=== PATIENT | female | born 1995 | race Caucasian/White ===

== ENCOUNTER 2023-07-05 13:11 | Emergency (ER) | payer OTHER ==
[2023-07-05 14:10] LABS: BASOPHILS PERCENT AUTO 0.3 % (0.0-1.0); EOSINOPHILS PERCENT AUTO 2.1 % (1.0-3.0); HEMATOCRIT 39.4 % (37.0-47.0); HEMOGLOBIN 13.7 g/dL (12.0-16.0); LYMPHOCYTES PERCENT AUTO 15.8 % (20.5-50.1); MEAN CORPUSCULAR HEMOGLOBIN 30.9 pg (27.0-34.0); MEAN CORPUSCULAR HGB CONC 34.8 g/dL (33.0-35.0); MEAN CORPUSCULAR VOLUME 88.7 fL (80-100); MONOCYTES PERCENT AUTO 9.6 % (2-8); NEUTROPHILS PERCENT AUTO 72.2 % (42.2-75.2); PLATELET COUNT,PLT 176 10^3/uL (150-450); RED BLOOD CELL COUNT 4.44 10^6/uL (4.2-5.4); WHITE BLOOD CELL COUNT,WBC 11.2 10^3/uL (5.0-10.0)
[2023-07-05 14:23] LABS: APPEARANCE,URINE SLIGHTLY CLOUDY (CLEAR); BILIRUBIN,URINE NEGATIVE (NEGATIVE); COLOR,URINE YELLOW (YELLOW); GLUCOSE,URINE NEGATIVE (NEGATIVE); KETONES,URINE NEGATIVE (NEGATIVE); LEUKOCYTE ESTERASE,URINE SMALL (NEGATIVE); NITRITE,URINE NEGATIVE (NEGATIVE); OCCULT BLOOD,URINE NEGATIVE (NEGATIVE); PROTEIN,URINE NEGATIVE (NEGATIVE)
[2023-07-05 14:29] LABS: INR 0.9 (0.9-1.2); PROTHROMBIN TIME 9.4 SEC (9.0-12.0); PTT,PARTIAL THROMBOPLSTIN TIME 25.8 SEC (22.0-34.0)
[2023-07-05 14:30] LABS: A/G RATIO 0.78; ALANINE AMINOTRANSFERASE,ALT 14 U/L (14-59); ALBUMIN 3.1 g/dL (3.4-5.0); ALKALINE PHOSPHATASE 79 U/L (46-116); AMYLASE 53 U/L (25-115); ANION GAP 13.8 mEq/L (7-13); ASPARTATE AMNIOTRANSFERASE,AST 10 U/L (15-37); BILIRUBIN TOTAL 0.4 mg/dL (0.2-1.0); BLOOD UREA NITROGEN,BUN 7 mg/dL (7-18); BUN/CREATININE RATIO 10.9 (No establ ref range); C-REACTIVE PROTEIN < 0.2 mg/dL (0.0-0.9); CARBON DIOXIDE,CO2 25 mmol/L (21-32); CHLORIDE,CL 103 mmol/L (98-107); CREATININE 0.64 mg/dL (0.55-1.02); EST CRCL DRUG DOSING (CG) 106.28 mL/min; ESTIMATED GFR 126 mL/min (>=60); GLUCOSE RANDOM 95 mg/dL (70-99); LIPASE 84 U/L (73-393); MAGNESIUM 1.9 mg/dL (1.8-2.4); POTASSIUM,K 3.8 mmol/L (3.5-5.1); PROTEIN TOTAL,TP 7.1 g/dL (6.4-8.2); SODIUM,NA 138 mmol/L (136-145)
[2023-07-05 14:32] LABS: AMORPHOUS SEDIMENT,URINE FEW /HPF (NOT SEEN); BACTERIA,URINE MODERATE /HPF (0-FEW/HPF); EPITHELIAL CELLS,URINE MODERATE /HPF (NOT SEEN); RBC,URINE NOT SEEN /HPF (0-5)
[2023-07-05 14:35] LABS: LACTIC ACID 0.7 mmol/L (0.4-2.0)
[2023-07-05] MEDS ORDERED: Ketorolac 30 MG/ML SDV IM ONE (15:37)
[2023-07-05 16:22] LABS: APPEARANCE,URINE CLEAR (CLEAR); BILIRUBIN,URINE NEGATIVE (NEGATIVE); COLOR,URINE YELLOW (YELLOW); GLUCOSE,URINE NEGATIVE (NEGATIVE); KETONES,URINE NEGATIVE (NEGATIVE); LEUKOCYTE ESTERASE,URINE NEGATIVE (NEGATIVE); NITRITE,URINE NEGATIVE (NEGATIVE); OCCULT BLOOD,URINE NEGATIVE (NEGATIVE); PROTEIN,URINE NEGATIVE (NEGATIVE)
== END 2023-07-05 16:54 | disposition home or self-care (01) ==
LOC: DL.ED 13:11
DX: O99.891 Other specified diseases and conditions complicating pregnancy (principal); N13.30 Unspecified hydronephrosis; Z3A.28 28 weeks gestation of pregnancy
CPT/HCPCS: 36415; 76705; 80053; 81001; 81003; 82150; 83605; 83690; 83735; 85025; 85610; 85730; 86140; 87086; 96372; 99284; C1758; J1885

== ENCOUNTER 2023-09-15 22:30 | Inpatient (IN) | payer OTHER ==
[2023-09-15] MEDS ORDERED: Sodium Chloride 0.9% 10 ML Syringe FLUSH PRN (23:18)
[2023-09-15] MEDS ORDERED: Tranexamic Acid 1,000 MG in Sodium Chloride 0.9% 100 ML IV PRN (23:18)
[2023-09-15] MEDS ORDERED: Ondansetron 4 MG/2 ML SDV IVPUSH PRN (23:18)
[2023-09-15] MEDS ORDERED: Methylergonovine 0.2 MG/1 ML Amp IM PRN (23:18)
[2023-09-15] MEDS ORDERED: Misoprostol 400 MCG (4 X 100 MCG TAB) RECTAL PRN (23:18)
[2023-09-15] MEDS ORDERED: Lidocaine 1% 30 ML SDV INJECT ONE (23:18)
[2023-09-15] MEDS ORDERED: Carboprost Tromethamine 250 MCG/1 ML Amp IM PRN (23:18)
[2023-09-15] MEDS ORDERED: fentaNYL 100 MCG/2 ML SDV IVPUSH PRN (23:18)
[2023-09-15] MEDS ORDERED: Acetaminophen 325 MG Tab PO PRN (23:18)
[2023-09-15 23:21] LABS: APPEARANCE,URINE CLEAR (CLEAR); BILIRUBIN,URINE NEGATIVE (NEGATIVE); COLOR,URINE YELLOW (YELLOW); GLUCOSE,URINE NEGATIVE (NEGATIVE); KETONES,URINE NEGATIVE (NEGATIVE); LEUKOCYTE ESTERASE,URINE NEGATIVE (NEGATIVE); NITRITE,URINE NEGATIVE (NEGATIVE); OCCULT BLOOD,URINE NEGATIVE (NEGATIVE); PH,URINE 6.5 (5.0-9.0); PROTEIN,URINE NEGATIVE (NEGATIVE); UROBILINOGEN,URINE 0.2 mg/dL (0.2-1.0)
[2023-09-15] MEDS ORDERED: ePHEDrine 50 MG/ML SDV IVPUSH PRN (23:21)
[2023-09-15] MEDS ORDERED: Phenylephrine HCl In 0.9% NaCl 1 MG/10 ML Syringe IVPUSH PRN (23:21)
[2023-09-15] MEDS ORDERED: Ropivacaine 200 MG in Premix Bag 1 BAG EPIDUR SCH (23:30)
[2023-09-15] MEDS ORDERED: Oxytocin/Normal Saline 30 UNIT/500 ML BAG IV SCH (23:30)
[2023-09-15 23:35] LABS: BACTERIA,URINE FEW /HPF (0-FEW/HPF); EPITHELIAL CELLS,URINE FEW /HPF (NOT SEEN); RBC,URINE 0-5 /HPF (0-5); WBC,URINE 0-5 /HPF (0-5/HPF)
[2023-09-16 00:50] LABS: HEMOGLOBIN 13.1 g/dL (12.0-16.0); MEAN CORPUSCULAR HEMOGLOBIN 30.3 pg (27.0-34.0); MEAN CORPUSCULAR HGB CONC 34.5 g/dL (33.0-35.0); MEAN CORPUSCULAR VOLUME 87.8 fL (80-100); RED BLOOD CELL COUNT 4.33 10^6/uL (4.2-5.4); WHITE BLOOD CELL COUNT,WBC 13.1 10^3/uL (5.0-10.0)
[2023-09-16] MEDS: Lactated Ringers 1,000 ML IV SCH ×2 (05:15→13:05)
[2023-09-16] MEDS ORDERED: Bupivacaine 0.25% 10 ML SDV ONE (08:34)
[2023-09-16] MEDS ORDERED: fentaNYL 100 MCG/2 ML SDV ONE (08:34)
[2023-09-16] MEDS ORDERED: Phenylephrine HCl In 0.9% NaCl 1 MG/10 ML Syringe IVPUSH PRN (08:58)
[2023-09-16] MEDS ORDERED: ePHEDrine 50 MG/ML SDV IVPUSH PRN (08:58)
[2023-09-16] MEDS ORDERED: Ropivacaine 200 MG in Premix Bag 1 BAG EPIDUR SCH (09:00)
[2023-09-16] MEDS: Lactated Ringers 1,000 ML IV ONE (09:20)
[2023-09-16] MEDS ORDERED: Tranexamic Acid 1,000 MG in Sodium Chloride 0.9% 100 ML IV PRN (16:41)
[2023-09-16] MEDS ORDERED: Oxytocin 10 Units/1 ML SDV IM PRN (16:41)
[2023-09-16] MEDS ORDERED: Carboprost Tromethamine 250 MCG/1 ML Amp IM PRN (16:41)
[2023-09-16] MEDS ORDERED: Simethicone 80 MG Tab.Chew PO PRN (16:41)
[2023-09-16] MEDS ORDERED: Misoprostol 400 MCG (4 X 100 MCG TAB) RECTAL PRN (16:41)
[2023-09-16] MEDS ORDERED: Benzocaine/Menthol 20%-0.5% Spray 78 GM Cannister TOP PRN (16:41)
[2023-09-16] MEDS ORDERED: Sodium Chloride 0.9% 10 ML Syringe FLUSH PRN (16:41)
[2023-09-16] MEDS: Ibuprofen 800 MG Tab PO PRN (17:37)
[2023-09-16] MEDS ORDERED: Witch Hazel Medicated Pads 100/Jar TOP PRN (19:33)
[2023-09-17] MEDS: Ibuprofen 800 MG Tab PO PRN ×3 (00:39→16:44)
[2023-09-17] MEDS ORDERED: fentaNYL 100 MCG/2 ML SDV ONE (01:33)
[2023-09-17] MEDS ORDERED: Bupivacaine 0.25% 10 ML SDV ONE (01:33)
[2023-09-17 06:38] LABS: HEMATOCRIT 33.8 % (37.0-47.0); HEMOGLOBIN 11.1 g/dL (12.0-16.0); MEAN CORPUSCULAR HGB CONC 32.8 g/dL (33.0-35.0); MEAN CORPUSCULAR VOLUME 91.4 fL (80-100); RED BLOOD CELL COUNT 3.7 10^6/uL (4.2-5.4); WHITE BLOOD CELL COUNT,WBC 13.1 10^3/uL (5.0-10.0)
[2023-09-17] MEDS: Ferrous Sulfate 325 MG Tab PO SCH (08:30)
[2023-09-17] MEDS: Prenatal Multivitamin with Calcium/Folic Acid/Iron Tab PO SCH (09:21)
[2023-09-17] MEDS: Docusate Sodium 100 MG Cap PO PRN ×2 (09:21→22:01)
[2023-09-17] MEDS: Acetaminophen 325 MG Tab PO PRN ×3 (10:49→22:00)
[2023-09-18] MEDS: Ibuprofen 800 MG Tab PO PRN (05:19)
[2023-09-18] MEDS: Ferrous Sulfate 325 MG Tab PO SCH (08:18)
[2023-09-18] MEDS: Acetaminophen 325 MG Tab PO PRN (08:18)
[2023-09-18] MEDS: Docusate Sodium 100 MG Cap PO PRN (08:18)
[2023-09-18] MEDS: Prenatal Multivitamin with Calcium/Folic Acid/Iron Tab PO SCH (08:18)
== END 2023-09-18 12:41 | disposition home or self-care (01) | DRG 806 ==
LOC: DL.OBCHECK 22:30 → UNDOADMOB 23:18 → DL.OB 23:18 → INTOOBSV 09-16 15:57 → OBSVTOIN 09-16 15:57
PROVIDERS: ADMIT Family Medicine; ATTEND Family Medicine
PROC: 10D07Z6 Extraction of Products of Conception, Vacuum, Via Natural or Artificial Opening (ICD-10-PCS; principal; 2023-09-16)
PROC: 10907ZC Drainage of Amniotic Fluid, Therapeutic from Products of Conception, Via Natural or Artificial Opening (ICD-10-PCS; 2023-09-16)
PROC: 0UQMXZZ Repair Vulva, External Approach (ICD-10-PCS; 2023-09-16)
DX: O99.892 Other specified diseases and conditions complicating childbirth (principal); N13.30 Unspecified hydronephrosis; Z37.0 Single live birth; F90.9 Attention-deficit hyperactivity disorder, unspecified type; O99.344 Other mental disorders complicating childbirth; O75.81 Maternal exhaustion complicating labor and delivery; O99.52 Diseases of the respiratory system complicating childbirth; J45.909 Unspecified asthma, uncomplicated; O70.0 First degree perineal laceration during delivery; Z88.0 Allergy status to penicillin; Z3A.38 38 weeks gestation of pregnancy
CPT/HCPCS: 01967; 36415; 51702; 59409; 81001; 85027; A9270-GY; J2405; J2590; J2795; J3010; J7120

== ENCOUNTER 2025-01-04 09:21 | Observation (INO) | payer SELFPAY ==
[2025-01-04] MEDS ORDERED: Iopamidol 612 MG/ML 100 ML Bottle IVPUSH ONE (09:51)
[2025-01-04 10:20] LABS: BASOPHILS PERCENT AUTO 0.1 % (0.0-1.0); EOSINOPHILS PERCENT AUTO 0.1 % (1.0-3.0); HEMATOCRIT 43.7 % (37.0-47.0); HEMOGLOBIN 15.2 g/dL (12.0-16.0); LYMPHOCYTES PERCENT AUTO 4.6 % (20.5-50.1); MEAN CORPUSCULAR HEMOGLOBIN 29.7 pg (27.0-34.0); MEAN CORPUSCULAR HGB CONC 34.8 g/dL (33.0-35.0); MEAN CORPUSCULAR VOLUME 85.5 fL (80-100); MONOCYTES PERCENT AUTO 5.8 % (2-8); NEUTROPHILS PERCENT AUTO 89.4 % (42.2-75.2); PLATELET COUNT,PLT 174 10^3/uL (150-450); RED BLOOD CELL COUNT 5.11 10^6/uL (4.2-5.4)
[2025-01-04 10:21] LABS: APPEARANCE,URINE CLEAR (CLEAR); BILIRUBIN,URINE SMALL (NEGATIVE); COLOR,URINE YELLOW (YELLOW); GLUCOSE,URINE NEGATIVE (NEGATIVE); KETONES,URINE 15 (NEGATIVE); LEUKOCYTE ESTERASE,URINE NEGATIVE (NEGATIVE); NITRITE,URINE NEGATIVE (NEGATIVE); OCCULT BLOOD,URINE NEGATIVE (NEGATIVE); PH,URINE 5.5 (5.0-9.0); PROTEIN,URINE TRACE (NEGATIVE); UROBILINOGEN,URINE 0.2 mg/dL (0.2-1.0)
[2025-01-04 10:30] LABS: RBC,URINE NOT SEEN /HPF (0-5); WBC,URINE 0-5 /HPF (0-5/HPF)
[2025-01-04 10:31] LABS: BACTERIA,URINE FEW /HPF (0-FEW/HPF); EPITHELIAL CELLS,URINE MODERATE /HPF (NOT SEEN); MUCUS,URINE FEW /LPF (NOT SEEN)
[2025-01-04] MEDS: Sodium Chloride 0.9% 1,000 ML IV ONE ×2 (10:31)
[2025-01-04 10:34] LABS: PROTHROMBIN TIME 10.4 SEC (9.0-12.0)
[2025-01-04] MEDS: Ondansetron 4 MG/2 ML SDV IVPUSH ONE (10:37)
[2025-01-04] MEDS: Famotidine 20 MG/2 ML SDV IVPUSH ONE (10:37)
[2025-01-04] MEDS: Lactated Ringers 1,000 ML IV ONE (10:38)
[2025-01-04 10:44] LABS: LACTIC ACID 1.5 mmol/L (0.4-2.0)
[2025-01-04 10:50] LABS: A/G RATIO 0.9; ALANINE AMINOTRANSFERASE,ALT 14 U/L (14-59); ALBUMIN 3.6 g/dL (3.4-5.0); ALKALINE PHOSPHATASE 68 U/L (46-116); ANION GAP 14.7 mEq/L (7-13); ASPARTATE AMNIOTRANSFERASE,AST 14 U/L (15-37); BILIRUBIN TOTAL 1.5 mg/dL (0.2-1.0); BLOOD UREA NITROGEN,BUN 14 mg/dL (7-18); BUN/CREATININE RATIO 19.4 (No establ ref range); CALCIUM 9.3 mg/dL (8.5-10.1); CARBON DIOXIDE,CO2 26 mmol/L (21-32); CHLORIDE,CL 100 mmol/L (98-107); CREATININE 0.72 mg/dL (0.55-1.02); GLUCOSE RANDOM 113 mg/dL (70-99); LIPASE 20 U/L (16-77); MAGNESIUM 1.7 mg/dL (1.8-2.4); POTASSIUM,K 3.7 mmol/L (3.5-5.1); PROTEIN TOTAL,TP 7.4 g/dL (6.4-8.2); SODIUM,NA 137 mmol/L (136-145)
[2025-01-04 10:54] LABS: ESTIMATED GFR 117 mL/min (>=60); ETHANOL BLOOD MEDICAL < 3 mg/dL (0)
[2025-01-04] MEDS: Pantoprazole 40 MG Vial IVPUSH ONE (11:59)
[2025-01-04] MEDS: Lactated Ringers 1,000 ML IV SCH (12:09)
[2025-01-04] MEDS ORDERED: Acetaminophen 325 MG Tab PO PRN (15:39)
[2025-01-04] MEDS ORDERED: Metoclopramide 10 MG/2 ML SDV IVPUSH PRN (15:40)
[2025-01-04] MEDS: Acetaminophen 325 MG Tab PO ONE (16:12)
[2025-01-04] MEDS: Ondansetron 4 MG/2 ML SDV IVPUSH PRN (16:12)
[2025-01-04] MEDS: Dextrose 5%-0.9% NaCl with KCl 1,000 ML IV SCH (16:35)
[2025-01-05] MEDS: Take Home: Ondansetron 4 MG Tab.DIS, 5 Tab Pack PO ONE (10:08)
== END 2025-01-05 10:10 | disposition still patient (30) ==
LOC: DL.ED 09:21 → UNDOADMOB 14:51 → DL.MS 14:51
PROVIDERS: ADMIT Family Medicine; ATTEND Family Medicine
DX: O99.612 Diseases of the digestive system complicating pregnancy, second trimester (principal); A08.4 Viral intestinal infection, unspecified; O21.9 Vomiting of pregnancy, unspecified; O99.282 Endocrine, nutritional and metabolic diseases complicating pregnancy, second trimester; E86.0 Dehydration; E83.42 Hypomagnesemia; Z88.1 Allergy status to other antibiotic agents; Z3A.17 17 weeks gestation of pregnancy; Z20.822 Contact with and (suspected) exposure to COVID-19; Z79.899 Other long term (current) drug therapy
CPT/HCPCS: 36415; 80053; 80307; 81001; 81025; 82947; 83605; 83690; 83735; 84484; 84702; 85025; 85610; 86850; 86900; 86901; 87428-QW; 93005; 93010; 96361; 96365; 96375; 99284; 99285-25; A9270-GY; G0378; J2405; J3475; J3480; J7120; Q0162

== ENCOUNTER 2025-06-04 18:04 | Inpatient (IN) | payer OTHER ==
[2025-06-04] MEDS ORDERED: Carboprost Tromethamine 250 MCG/1 ML Amp IM PRN ×2 (19:05→23:35)
[2025-06-04] MEDS ORDERED: Sodium Chloride 0.9% 10 ML Syringe FLUSH PRN ×2 (19:15→23:35)
[2025-06-04] MEDS ORDERED: Oxytocin/Lactated Ringers 30 UNIT/500 ML BAG IV SCH (19:15)
[2025-06-04 19:22] LABS: PLATELET COUNT,PLT 200.0 10^3/uL (150-450); RED BLOOD CELL COUNT 4.51 10^6/uL (4.2-5.4); WHITE BLOOD CELL COUNT,WBC 14.2 10^3/uL (5.0-10.0)
[2025-06-04] MEDS: Ondansetron 4 MG/2 ML SDV IVPUSH PRN (19:46)
[2025-06-04] MEDS: Lactated Ringers 1,000 ML IV ONE (19:46)
[2025-06-04] MEDS ORDERED: fentaNYL 100 MCG/2 ML SDV ONE (19:54)
[2025-06-04] MEDS ORDERED: ePHEDrine 50 MG/ML SDV ONE (19:54)
[2025-06-04] MEDS: Lactated Ringers 1,000 ML IV SCH (20:08)
[2025-06-04] MEDS: Oxytocin/Normal Saline 30 UNIT/500 ML BAG IV SCH (23:04)
[2025-06-04] MEDS ORDERED: Oxytocin 10 Units/1 ML SDV IM PRN (23:35)
[2025-06-04] MEDS ORDERED: Acetaminophen/HYDROcodone 325-10 MG Tab PO PRN (23:35)
[2025-06-05] MEDS: Witch Hazel Medicated Pads 100/Jar TOP PRN (00:43)
[2025-06-05] MEDS: Benzocaine/Menthol 20%-0.5% Spray 78 GM Cannister TOP PRN (00:43)
[2025-06-05] MEDS: Prenatal Multivitamin with Calcium/Folic Acid/Iron Tab PO SCH (07:43)
[2025-06-06] MEDS ORDERED: fentaNYL 100 MCG/2 ML SDV EPIDUR ONE (08:14)
== END 2025-06-06 08:15 | disposition home or self-care (01) | DRG 807 ==
LOC: DL.OBCHECK 18:04 → DL.OB 19:05 → OBSVTOIN 23:16
PROVIDERS: ADMIT Family Medicine; ATTEND Family Medicine
PROC: 10E0XZZ Delivery of Products of Conception, External Approach (ICD-10-PCS; principal; 2025-06-04)
PROC: 10907ZC Drainage of Amniotic Fluid, Therapeutic from Products of Conception, Via Natural or Artificial Opening (ICD-10-PCS; 2025-06-04)
PROC: 3E0R3BZ Introduction of Anesthetic Agent into Spinal Canal, Percutaneous Approach (ICD-10-PCS; 2025-06-04)
PROC: 00HU33Z Insertion of Infusion Device into Spinal Canal, Percutaneous Approach (ICD-10-PCS; 2025-06-04)
DX: O99.52 Diseases of the respiratory system complicating childbirth (principal); Z37.0 Single live birth; J45.909 Unspecified asthma, uncomplicated; O99.62 Diseases of the digestive system complicating childbirth; K21.9 Gastro-esophageal reflux disease without esophagitis; O71.89 Other specified obstetric trauma; Z3A.38 38 weeks gestation of pregnancy; Z98.890 Other specified postprocedural states
CPT/HCPCS: 36415; 51701; 59409; 85027; A9270-GY; J2405; J2590; J3010; J7120